=== PATIENT | female | born 1965 | race Caucasian/White ===

== ENCOUNTER 2021-09-15 16:34 | Emergency (ER) | payer SELFPAY ==
--- NOTE | 2021-09-15 17:19 | EDM.PDOC ---
ED HPI GENERAL MEDICAL PROBLEM - General Chief Complaint: Respiratory Problem Stated Complaint: SOB, FATIGUE Time Seen by Provider: 09/15/21 17:05 Source of Information: Reports: Patient, Provider History Limitations: Reports: No Limitations - History of Present Illness INITIAL COMMENTS - FREE TEXT/NARRATIVE: 56-year-old female who is 3 weeks into recovering from Covid, unvaccinated and did not receive the monoclonal antibody therapy, got out of the shower today and was going up the stairs when she felt lightheaded and woozy. She sat down against the wall and passed out briefly, it scared her daughter who called the ambulance. She does have a recent diagnosis of hypokalemia, when she went into the clinic to be evaluated by her primary provider she felt she should go to the emergency room because she did not have time to recheck labs. She does not have palpitations, chest pain, she has a mild headache but no other symptoms. She is not febrile. Associated Symptoms: Reports: Cough, Headaches, Malaise, Shortness of Breath, Weakness, Other (Brief syncopal episode this afternoon) - Related Data Allergies Allergy/AdvReac Type Severity Reaction Status Date / Time Penicillins Allergy Cannot Verified 09/15/21 17:04 Remember Home Meds: Home Meds Potassium Chloride 20 meq PO DAILY 09/15/21 [History] predniSONE [Prednisone] 10 mg PO DAILY 09/15/21 [History] Past Medical History HEENT History: Reports: Impaired Vision [employer] History: Reports: Musculoskeletal History: Reports: Fracture - Past Surgical History GI Surgical History: Reports: Appendectomy Female Surgical History: Reports: Section Social & Family History - Tobacco Use Tobacco Use Status *Q: Never Tobacco User - Caffeine Use Caffeine Use: Reports: None - Recreational Drug Use Recreational Drug Use: No ED ROS GENERAL - Review of Systems Review Of Systems: See Below Constitutional: Reports: Malaise. Denies: Fever, Chills HEENT: Denies: Vision Change Respiratory: Reports: Shortness of Breath, Cough Cardiovascular: Denies: Chest Pain GI/Abdominal: Denies: Abdominal Pain, Nausea, Vomiting Skin: Reports: Diaphoresis Neurological: Reports: Dizziness, Headache, Syncope Psychiatric: Reports: No Symptoms ED EXAM, GENERAL - Physical Exam Exam: See Below Exam Limited By: No Limitations General Appearance: Alert, No Apparent Distress Eye Exam: Bilateral Eye: Normal Inspection Head: Atraumatic Neck: Supple, Non-Tender Respiratory/Chest: Lungs Clear Cardiovascular: Regular Rate, Rhythm. No: Tachycardia GI/Abdominal: Non-Tender Neurological: Alert, Oriented Psychiatric: Normal Affect, Normal Mood Skin Exam: Warm, Dry, Decubitus Course - Vital Signs Last Recorded V/S: Last Vital Signs Temp 97.6 F 09/15/21 16:51 Pulse 76 09/15/21 17:47 Resp 18 09/15/21 16:51 BP 104/73 09/15/21 17:47 Pulse Ox 97 09/15/21 16:51 - Orders/Labs/Meds Labs: Laboratory Tests 09/15/21 09/15/21 Range/Units 17:23 17:23 WBC 6.4 (4.5-11.0) K/uL RBC 4.43 (3.30-5.50) M/uL Hgb 13.1 (12.0-15.0) g/dL Hct 39.5 (36.0-48.0) % MCV 89 (80-98) fL MCH 30 (27-31) pg MCHC 33 (32-36) % Plt Count 337 (150-400) K/uL Neut % (Auto) 74.7 H (36-66) % Lymph % (Auto) 13.7 L (24-44) % [place] % (Auto) 11.3 H (2-6) % Eos % (Auto) 0.0 L (2-4) % Baso % (Auto) 0.3 (0-1) % Sodium 138 L (140-148) mmol/L Potassium 4.2 (3.6-5.2) mmol/L Chloride 103 (100-108) mmol/L Carbon Dioxide 26 (21-32) mmol/L Anion Gap 13.2 (5.0-14.0) mmol/L BUN 14 (7-18) mg/dL Creatinine 1.1 H (0.6-1.0) mg/dL Est Cr Clr Drug Dosing 49.31 mL/min Estimated GFR (MDRD) 51 L (>60) Glucose 103 (74-106) mg/dL Calcium 9.3 (8.5-10.1) mg/dL - Re-Assessments/Exams Free Text/Narrative Re-Assessment/Exam: 09/15/21 17:17 This patient had a vasovagal episode after getting out of the shower, not surprising with her trying to recover from Covid, especially with currently being on prednisone to apparently reduce the inflammatory response to the illness. She is actually very stable, O2 sats are normal and lungs are clear. Blood pressure is fine. CBC and BMP were obtained, white count may be elevated due to the prednisone treatment but electrolytes were her primary doctor's main concern that she wanted checked. 09/15/21 18:11 Electrolytes are reassuring, creatinine is 1.1 and GFR a little low so I encour aged oral hydration. Departure - Departure Time of Disposition: 18:24 Disposition: Home, Self-Care 01 Clinical Impression: Dehydration, mild Syncope Qualifiers: Syncope type: vasovagal syncope Qualified Code(s): R55 - Syncope and collapse - Discharge Information Instructions: Syncope, [id number] Referrals: PCP,None [Primary Care Provider] - Forms: ED Department Discharge Care Plan Goals: Stay hydrated by pushing fluids for the next couple of days, increase activity as tolerated and recheck if worsening or concerns. Sepsis Event Note (ED) - Evaluation Sepsis Screening Result: No Definite Risk
== END 2021-09-15 18:24 | disposition home or self-care (01) ==
LOC: JP.ED 16:34
DX: R55 Syncope and collapse (principal); E86.0 Dehydration; Z88.0 Allergy status to penicillin
CPT/HCPCS: 36415; 80048; 85025; 99284